=== PATIENT | female | born 1980 | race Caucasian/White ===

== ENCOUNTER 2019-09-02 14:49 | Emergency (ER) | payer OTHER ==
[~2019-09-02] VITALS: Wt 52.2 kg
[2019-09-02 15:10] VITALS: BP 101/53
[2019-09-02 16:25] LABS: BILIRUBIN NEGATIVE (NEGATIVE); BLOOD TRACE-INTACT (NEGATIVE); CLARITY SL CLOUDY (CLEAR); COLOR YELLOW (YELLOW); GLUCOSE NEGATIVE (NEGATIVE); KETONE NEGATIVE (NEGATIVE); LEUKO ESTERASE 3+ (NEGATIVE); NITRITE POSITIVE (NEGATIVE); UROBILINOGEN 0.2 E.U./dl (0.2-1.0)
[2019-09-02 16:43] LABS: BACTERIA 2+; RBC 0-2 rbc/hpf (0-2); WBC 41-50 wbc/hpf (0-5)
[2019-09-02 16:51] LABS: HEMOGLOBIN 7.5 g/dl (12.0-16.0); MEAN CELL VOLUME 62.5 fl (81.0-99.0); MEAN CORPUSCULAR HGB 16.2 pg (27.0-31.0); MEAN CORPUSCULAR HGB CONC 25.9 g/dl (33.0-37.0); PLATELET COUNT AUTOMATED 352 10*3/uL (130-400); RED BLOOD COUNT 4.64 10*6/uL (4.10-5.10); RED CELL DISTRI WIDTH 21.1 % (0-14.5); WHITE BLOOD COUNT 13.3 10*3/uL (4.8-10.8)
[2019-09-02 17:19] LABS: ALBUMIN 4.2 gm/dl (3.1-4.5); ALKALINE PHOSPHATASE 70 U/L (45-117); BUN 9 mg/dl (7-24); CHLORIDE 110 mmol/L (98-107); CREATININE 0.76 mg/dL (0.55-1.02); POTASSIUM 3.9 mmol/L (3.5-5.1); SGOT/AST 13 IU/L (3-35); SGPT/ALT 16 U/L (12-78); SODIUM 140 mmol/L (136-145); TOTAL PROTEIN 7.9 gm/dL (6.4-8.2)
[2019-09-02 17:26] LABS: BASOPHILS 3 % (0-1); TOTAL CELLS COUNTED 100 #CELLS
[2019-09-02 17:27] LABS: OVALOCYTES FEW; PLATELET SUFFICIENCY NORMAL (NORMAL)
[2019-09-02 17:38] LABS: BETA-HCG, QUANT < 1.0 mIU/mL (1-3)
[2019-09-02] MEDS ORDERED: PROAIR HFA8.5 GM INH ×2 (18:50→20:27)
[2019-09-02] MEDS ORDERED: ATROVENT HFA12.9 GM INH ×2 (18:50→20:27)
[2019-09-02] MEDS ORDERED: NEBULIZER ×2 (18:50→20:27)
[2019-09-02] MEDS ORDERED: VIBRAMYCIN100 MG PO ×2 (18:50→20:27)
[2019-09-03] MEDS ORDERED: KETOROLAC10 MG PO (17:02)
== END 2019-09-02 19:24 | disposition home or self-care (01) ==
LOC: ED 14:49
PROVIDERS: Physician Assistant
DX: N39.0 Urinary tract infection, site not specified (principal); N76.0 Acute vaginitis; J45.901 Unspecified asthma with (acute) exacerbation; F17.200 Nicotine dependence, unspecified, uncomplicated; Z88.0 Allergy status to penicillin; Z91.040 Latex allergy status

== ENCOUNTER 2019-10-23 00:40 | Emergency (ER) | payer OTHER ==
[~2019-10-23] VITALS: Ht 157.4 cm; Wt 52.2 kg
[~2019-10-23 00:40] MED LIST: ATROVENT HFA12.9 GM INH; KETOROLAC10 MG PO; NEBULIZER; PROAIR HFA8.5 GM INH; VIBRAMYCIN100 MG PO
[2019-10-23 01:04] VITALS: BP 102/46
== END 2019-10-23 02:04 | disposition home or self-care (01) ==
LOC: ED 00:40
DX: M79.601 Pain in right arm (principal); F31.9 Bipolar disorder, unspecified; F43.10 Post-traumatic stress disorder, unspecified; F19.10 Other psychoactive substance abuse, uncomplicated; J45.909 Unspecified asthma, uncomplicated; Z88.0 Allergy status to penicillin; Z91.040 Latex allergy status

== ENCOUNTER 2020-04-15 20:35 | Emergency (ER) | payer OTHER ==
[~2020-04-15] VITALS: Ht 157.4 cm; Wt 54.4 kg
[2020-04-15 20:48] VITALS: BP 106/66
[2020-04-15 22:13] LABS: BILIRUBIN NEGATIVE (NEGATIVE); CLARITY SL CLOUDY (CLEAR); COLOR YELLOW (YELLOW); GLUCOSE NEGATIVE (NEGATIVE); KETONE NEGATIVE (NEGATIVE)
[2020-04-15 22:14] LABS: BLOOD TRACE-INTACT (NEGATIVE); LEUKO ESTERASE 3+ (NEGATIVE); NITRITE NEGATIVE (NEGATIVE); UROBILINOGEN 0.2 E.U./dl (0.2-1.0)
[2020-04-15 22:35] LABS: BACTERIA 2+; WBC TNTC wbc/hpf (0-5)
[2020-04-15] MEDS ORDERED: CIPRODEX 0.3%-7.5 ML OT (22:51)
[2020-04-15] MEDS ORDERED: OMNICEF300 MG PO (22:51)
== END 2020-04-15 23:01 | disposition home or self-care (01) ==
LOC: ED 20:35
PROVIDERS: Physician Assistant
DX: H66.91 Otitis media, unspecified, right ear (principal); N39.0 Urinary tract infection, site not specified; Z88.0 Allergy status to penicillin; Z91.040 Latex allergy status; Z79.899 Other long term (current) drug therapy

== ENCOUNTER 2020-08-10 06:02 | Emergency (ER) | payer OTHER ==
[~2020-08-10] VITALS: Ht 157.4 cm; Wt 52.2 kg
[~2020-08-10 06:02] MED LIST changes: +CIPRODEX 0.3%-7.5 ML OT; +OMNICEF300 MG PO
[2020-08-10 06:13] VITALS: BP 158/90
== END 2020-08-10 09:30 | disposition short-term general hospital (02) ==
LOC: ED 06:02
DX: T23.201A Burn of second degree of right hand, unspecified site, initial encounter (principal); F32.9 Major depressive disorder, single episode, unspecified; F17.200 Nicotine dependence, unspecified, uncomplicated; Z88.0 Allergy status to penicillin; Z91.048 Other nonmedicinal substance allergy status; Z91.040 Latex allergy status; Z79.2 Long term (current) use of antibiotics; Z79.899 Other long term (current) drug therapy; X19.XXXA Contact with other heat and hot substances, initial encounter; Y93.89 Activity, other specified; Y92.89 Other specified places as the place of occurrence of the external cause; Y99.8 Other external cause status